=== PATIENT | male | born 1965 | race African-American/Black ===

== ENCOUNTER 2018-05-07 14:08 | Inpatient (IN) | payer OTHER ==
[2018-05-07] MEDS: IV NORMAL SALINE 1000ML BAG 1,000 ML IV ×3 (15:26→18:06)
[2018-05-07] MEDS: ONDANSETRON PF 4 MG/2 ML VIAL. IV (15:29)
[2018-05-07 15:33] LABS: BASO % 0 % (0-3); EOS % 0 % (0-3); HEMATOCRIT 48.1 % (39.0-53.0); HEMOGLOBIN 16.3 g/dL (13.0-17.5); LYMPH # 0.2 x10^3/uL (1.0-4.8); LYMPH % 2 % (24-48); MEAN CORPUSCULAR HEMOGLOBIN 29 pg (25-35); MEAN CORPUSCULAR HGB CONC 34 g/dL (31-37); MEAN CORPUSCULAR VOLUME 86 fL (79-100); MONO # 0.4 x10^3/uL (0.0-1.1); MONO % 3 % (0-9); NEUT # 11.1 x10^3uL (1.8-7.7); NEUT % 94 % (31-73); PLATELET COUNT 325 x10^3/uL (140-400); RED CELL DISTRIBUTION WIDTH 13.8 % (11.5-14.5); WHITE BLOOD COUNT 11.7 x10^3/uL (4.0-11.0)
[2018-05-07 15:34] LABS: ADD MAN DIFF? YES
[2018-05-07 16:20] LABS: ANION GAP 9 (6-14); BLOOD UREA NITROGEN 16 mg/dL (8-26); BUN/CREATININE RATIO 13 (6-20); CALCIUM 8.8 mg/dL (8.5-10.1); CARBON DIOXIDE 23 mmol/L (21-32); CHLORIDE 108 mmol/L (98-107); CREATININE 1.2 mg/dL (0.7-1.3); GFR 76.9; GLUCOSE 102 mg/dL (70-99); POTASSIUM 4.6 mmol/L (3.5-5.1); SODIUM 140 mmol/L (136-145)
[2018-05-07] MEDS ORDERED: ACETAMINOPHEN 650 MG SUPP.RECT. (16:22)
[2018-05-07] MEDS: ACETAMINOPHEN 650 MG SUPP.RECT. PR (16:25)
[2018-05-07 16:26] LABS: ALBUMIN 3.4 g/dL (3.4-5.0); ALBUMIN/GLOBULIN RATIO 0.8 (1.0-1.7); ALK PHOS 172 U/L (46-116); ALT (SGPT) 92 U/L (16-63); AST (SGOT) 62 U/L (15-37); LIPASE 131 U/L (73-393); TOTAL BILIRUBIN 0.9 mg/dL (0.2-1.0); TOTAL PROTEIN 7.9 g/dL (6.4-8.2)
[2018-05-07 16:28] LABS: LACTIC ACID 3.8 mmol/L (0.4-2.0)
[2018-05-07 16:46] LABS: % BANDS 3 % (0-9); % LYMPHS 5 % (24-48); % MONOS 4 % (0-10); % SEGS 88 % (35-66)
[2018-05-07 16:54] LABS: PLT ESTIMATE ADEQUATE (ADEQUATE)
[2018-05-07] MEDS ORDERED: CONTRAST GIVEN. MC (17:00)
[2018-05-07] MEDS: IOHEXOL 300 MG/ML 100ML VIAL. IV (17:02)
[2018-05-07] MEDS: PIPERACILLIN/TAZOBACTAM 3.375 GM in IV NORMAL SALINE 50ML 50 ML IV (18:09)
[2018-05-07 19:06] LABS: BILIRUBIN,URINE NEGATIVE (NEG); COLOR,URINE YELLOW; GLUCOSE,URINE NEGATIVE (NEG); NITRITE,URINE NEGATIVE (NEG); PH,URINE 5.5; PROTEIN,URINE NEGATIVE (NEG-TRACE); UROBILINOGEN,URINE 0.2 mg/dL (0.2 mg/dL)
[2018-05-07 19:25] LABS: RBC,URINE 20-40 /HPF (0-2)
[2018-05-07 19:30] LABS: BACTERIA,URINE 0 /HPF (0-FEW); CLARITY,URINE HAZY; SQUAMOUS EPITHELIAL CELL,UR MOD /LPF
[2018-05-07 23:20] LABS: LACTIC ACID 2.4 mmol/L (0.4-2.0)
[2018-05-08] MEDS: ACETAMINOPHEN 325 MG TABLET. PO ×2 (03:58→16:22)
[2018-05-08 07:53] LABS: ADD MAN DIFF? NO
[2018-05-08 07:59] LABS: BASO % 0 % (0-3); EOS % 0 % (0-3); HEMOGLOBIN 13.3 g/dL (13.0-17.5); LYMPH # 0.4 x10^3/uL (1.0-4.8); LYMPH % 7 % (24-48); MEAN CORPUSCULAR HEMOGLOBIN 29 pg (25-35); MEAN CORPUSCULAR HGB CONC 34 g/dL (31-37); MEAN CORPUSCULAR VOLUME 86 fL (79-100); MONO # 0.3 x10^3/uL (0.0-1.1); MONO % 5 % (0-9); NEUT # 5.5 x10^3uL (1.8-7.7); NEUT % 88 % (31-73); PLATELET COUNT 229 x10^3/uL (140-400); RED BLOOD COUNT 4.55 x10^6/uL (4.30-5.70); RED CELL DISTRIBUTION WIDTH 13.8 % (11.5-14.5); WHITE BLOOD COUNT 6.3 x10^3/uL (4.0-11.0)
[2018-05-08 08:15] LABS: ALBUMIN 2.7 g/dL (3.4-5.0); ALBUMIN/GLOBULIN RATIO 0.7 (1.0-1.7); ALK PHOS 138 U/L (46-116); ALT (SGPT) 82 U/L (16-63); ANION GAP 11 (6-14); AST (SGOT) 64 U/L (15-37); BLOOD UREA NITROGEN 14 mg/dL (8-26); BUN/CREATININE RATIO 13 (6-20); CALCIUM 7.5 mg/dL (8.5-10.1); CARBON DIOXIDE 23 mmol/L (21-32); CHLORIDE 113 mmol/L (98-107); CREATININE 1.1 mg/dL (0.7-1.3); GFR 85.1; GLUCOSE 95 mg/dL (70-99); POTASSIUM 3.7 mmol/L (3.5-5.1); SODIUM 147 mmol/L (136-145); TOTAL BILIRUBIN 0.9 mg/dL (0.2-1.0); TOTAL PROTEIN 6.4 g/dL (6.4-8.2)
[2018-05-08] MEDS: PANTOPRAZOLE IV PUSH 40 MG VIAL. IVP (09:30)
[2018-05-08] MEDS ORDERED: POTASSIUM CHLORIDE 20 MEQ in IV NORMAL SALINE 1000ML BAG 1,000 ML IV (11:00)
[2018-05-08] MEDS: POTASSIUM CHLORIDE 20 MEQ in IV NORMAL SALINE 1000ML BAG 1,000 ML IV (11:56)
[2018-05-08] MEDS: PANTOPRAZOLE 40 MG TABLET.DR. PO (12:01)
[2018-05-08] MEDS: cefTRIAXone IV Push 1 GM VIAL. IVP (12:01)
[2018-05-08 14:52] LABS: NEGATIVE OBC ROTA NEG; POSITIVE OBC ROTA POSITIVE; ROTAVIRUS PATIENT NEGATIVE (NEGATIVE)
[2018-05-08] MEDS: LACTOBACILLUS RHAMNOSUS GG 1 CAPSULE. PO (21:03)
[2018-05-08 22:13] LABS: C DIFF BY PCR Negative (Negative)
[2018-05-09 04:54] LABS: ADD MAN DIFF? NO
[2018-05-09 05:03] LABS: BASO % 0 % (0-3); EOS % 0 % (0-3); HEMOGLOBIN 13.2 g/dL (13.0-17.5); LYMPH # 0.7 x10^3/uL (1.0-4.8); LYMPH % 10 % (24-48); MEAN CORPUSCULAR HEMOGLOBIN 30 pg (25-35); MEAN CORPUSCULAR HGB CONC 35 g/dL (31-37); MEAN CORPUSCULAR VOLUME 85 fL (79-100); MONO # 0.5 x10^3/uL (0.0-1.1); MONO % 7 % (0-9); NEUT # 5.5 x10^3uL (1.8-7.7); NEUT % 83 % (31-73); PLATELET COUNT 228 x10^3/uL (140-400); RED BLOOD COUNT 4.46 x10^6/uL (4.30-5.70); RED CELL DISTRIBUTION WIDTH 13.9 % (11.5-14.5); WHITE BLOOD COUNT 6.7 x10^3/uL (4.0-11.0)
[2018-05-09 05:20] LABS: ALBUMIN 2.8 g/dL (3.4-5.0); ALBUMIN/GLOBULIN RATIO 0.7 (1.0-1.7); ALK PHOS 123 U/L (46-116); ALT (SGPT) 77 U/L (16-63); ANION GAP 6 (6-14); AST (SGOT) 77 U/L (15-37); BLOOD UREA NITROGEN 9 mg/dL (8-26); BUN/CREATININE RATIO 9 (6-20); CALCIUM 7.7 mg/dL (8.5-10.1); CARBON DIOXIDE 25 mmol/L (21-32); CHLORIDE 109 mmol/L (98-107); GFR 94.9; GLUCOSE 103 mg/dL (70-99); MAGNESIUM 1.7 mg/dL (1.8-2.4); POTASSIUM 3.7 mmol/L (3.5-5.1); SODIUM 140 mmol/L (136-145); TOTAL BILIRUBIN 0.6 mg/dL (0.2-1.0); TOTAL PROTEIN 6.6 g/dL (6.4-8.2)
[2018-05-09] MEDS ORDERED: PANTOPRAZOLE 40 MG TABLET.DR. PO (07:30)
[2018-05-09] MEDS: PANTOPRAZOLE 40 MG TABLET.DR. PO (08:33)
[2018-05-09] MEDS: LACTOBACILLUS RHAMNOSUS GG 1 CAPSULE. PO (08:33)
[2018-05-09] MEDS: MAGNESIUM SULFATE 2GM 50 ML IV (09:19)
== END 2018-05-09 14:47 | disposition home health service (06) | DRG 871 ==
LOC: ER 14:08 → 6 SOUTH 20:00
DX: A41.9 Sepsis, unspecified organism (principal); E43 Unspecified severe protein-calorie malnutrition; Z68.24 Body mass index [BMI] 24.0-24.9, adult; G80.8 Other cerebral palsy; N18.2 Chronic kidney disease, stage 2 (mild); Z82.49 Family history of ischemic heart disease and other diseases of the circulatory system; Z77.22 Contact with and (suspected) exposure to environmental tobacco smoke (acute) (chronic); K80.20 Calculus of gallbladder without cholecystitis without obstruction; N20.0 Calculus of kidney; N28.1 Cyst of kidney, acquired; Z98.42 Cataract extraction status, left eye; Z98.41 Cataract extraction status, right eye; R74.0 Nonspecific elevation of levels of transaminase and lactic acid dehydrogenase [LDH]; R53.81 Other malaise; K52.9 Noninfective gastroenteritis and colitis, unspecified
CPT/HCPCS: 36415; 71045; 74177; 80053; 81001; 83605; 83690; 83735; 85007; 85025; 87040; 87086; 87205; 87324; 87425; 93005; 96361; 96365; 96366; 96367; 96375; 99285-25; J0696; J2405; J2543; J3475; J7030; Q9967